=== PATIENT | male | born 1980 | race Caucasian/White ===

== ENCOUNTER 2018-07-04 07:57 | Emergency (ER) | payer MEDICAID ==
[~2018-07-04] VITALS: Ht 188 cm; Wt 79.4 kg
[~2018-07-04 07:57] MED LIST: CIPR500 PO; Norco 10-325 T1 EACH PO; ONDA4 PO; OXYACE5T PO; OXYACE7.5T PO; PRED10 PO; Percocet 7.5-31 EACH PO; Prednisone20 MG PO; RXOXYACE PO; SULF500A PO; Zofran Odt4 MG SL; Zofran8 MG PO
[2018-07-04] MEDS ORDERED: Norco 5-325 Ta1 EACH PO (09:16)
== END 2018-07-04 09:40 | disposition home or self-care (01) ==
LOC: ER 07:57
DX: S60.221A Contusion of right hand, initial encounter (principal); Z91.011 Allergy to milk products; W23.0XXA Caught, crushed, jammed, or pinched between moving objects, initial encounter
CPT/HCPCS: 73130; 90471; 90714; 99283-25